=== PATIENT | female | born 1990 ===

== ENCOUNTER 2016-10-22 05:42 | Day surgery (SDC) | payer MEDICAID ==
[2016-10-22] MEDS ORDERED: LIDOCAINE 1% 2 ML INJ ONE (06:05)
--- NOTE | 2016-10-22 06:06 | PDGENHP ---
History and Physical History and Physical: Assessment and Plan: 1. Endometriosis determined by laparoscopy Sharonda's symptoms, exam findings, and ultrasound findings are highly suggestive of persistent or recurrent endometriosis with pelvic adhesive disease. We again reviewed all conservative and surgical options. She has failed medical management. Unfortunately she has been inadequately treated surgically. At the end of our discussion she is interested in scheduling robotic excision of all endometriosis. This will be followed up by menstrual suppression to try to prevent recurrence. I would recommend remaining on it until immediately before attempting . Given all of her symptoms with the various regimens, I think a Mirena IUD would likely be her best option. 2. Pelvic pain in female 3. Dysmenorrhea Subjective: Patient ID: Sharonda Long is a 26 y.o. female who presents to [facility] for endometriosis. FERNY Mcdonough is a 26-year-old 0 woman who lives in [place]. She has a long history of endometriosis. She developed severe dysmenorrhea beginning with menarche at age 12. Eventually she underwent a laparoscopy by Dr. Woods at age 17. She apparently was found to have endometriosis which was fulgurated. She felt better for about 3 years. She was managing her pain with ibuprofen however she was taking up to 1800 mg every 4 hours and developed an ulcer. In [address] aMdison Schrader at [facility]. She performed a laparoscopy and apparently did not see much. She thought her IUD was malpositioned and removed it. The following year she saw Dr. Benson Bryson in [place] who repeated the laparoscopy and apparently found endometriosis which was also ablated. He also thought her IUD had shifted and it was removed. After the Mirena was inserted by Dr. Schrader, she felt good for about 5 months. However her cramping and irregular bleeding became more frequent. She was put on a continuous control pill by Dr. Bryson. She has been on several different pills. Her bleeding eventually improved. However more recently she has been having persistent daily bleeding. She was switched to Nordette 4 weeks ago. She has not bled the last [address] Bryson performed in ultrasound and she was told her endometrium was paper thin. She was told to stop the pill for 3 weeks then restart it. Her bleeding returned and therefore she was switched to the Nordette 4 weeks ago. Cass has slowly worsening dyspareunia. This did improve some after Dr. Bryson's laparoscopy. She has terrible back pain which radiates down the back of both thighs and hips. She has central pelvic cramping which feels menstrual like. She often will lie in the position 1 week per month. She does have dyschezia which is worse during her menses. She alternates between constipation and diarrhea. She often has to take Imodium to treat the diarrhea. Fortunately she has no chest pain, shoulder pain, or shortness of breath. She often developed side effects from a combination control pill having headaches, anxiety, depression, and PMS despite taking the pill in a continuous fashion. She also has tried Neurontin in the past which did nothing. She and her were in February. 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 However she will be losing her job because she has been unable to work secondary to the pain. PastMedicalHistory Past Medical History: Diagnosis Date Endometriosis GERD (gastroesophageal reflux disease) IBS (irritable bowel syndrome) IBS (irritable bowel syndrome) Peptic ulcer disease PastSurgicalHistory Past Surgical History: Procedure Laterality Date APPENDECTOMY INTRAUTERINE DEVICE INSERTION LAPAROSCOPY x 4 for endometriosis PELVIC LAPAROSCOPY 2006, 2013, 2015 TONSILLECTOMY CURRENT MEDICATIONS: Current Outpatient Prescriptions Medication Sig .09/09, , 1.5-30 mg-mcg Tab ondansetron (ZOFRAN) 4 mg tablet Take 1 tablet by mouth every 8 hours as needed for Nausea. oxyCODONE-acetaminophen (PERCOCET) 5-325 mg tab ranitidine (ZANTAC) 150 mg tablet Take 150 mg by mouth daily. EPINEPHrine (TWINJECT AUTOJECTOR) 0.3 mg/0.3 mL Cmpk injection Inject 0.3 mg into the skin once as needed. (Patient not taking: Reported on 09/09/2016) fluCONazole (DIFLUCAN) 150 mg tablet Take one tablet PO every other day x 3 doses (Patient not taking: Reported on 09/09/2016) HYDROcodone-acetaminophen (NORCO) 5-325 mg 1/2-1 tablet every 6 hours as needed for pelvic pain. This med has acetaminophen (APAP). (Patient not taking: Reported on 09/09/2016) norgestimate-ethinyl estradiol (ORTHO TRI-CYCLEN,TRI-SPRINTEC) 0.18/0.215/ 0.25 mg-35 mcg (28) Take 1 tablet by mouth daily for Endometriosis. (Patient not taking: Reported on 09/09/2016) ORTHO-CYCLEN, 28, 0.25-35 mg-mcg per tablet promethazine-codeine (PHENERGAN WITH CODEINE) 6.25-10 mg/5 mL syrup Take 10 mLs by mouth nightly at bedtime for 12 doses. No current facility-administered medications for this visit. ALLERGIES: Cephalosporins; Penicillins; Egg; Levaquin [levofloxacin]; Levothyroxine; Levothyroxine sodium; and Nsaids (non-steroidal anti- inflammatory drug) I have reviewed, verified and agree with the past medical, surgical, , family, social and ROS history as documented by the RN today. Review of Systems Objective: Vital Signs: Visit Vitals BP 114/68 Pulse 83 Temp 36.9 C (98.5 F) (Temporal Artery) Resp 14 Ht 1.676 m (5' 6") Wt 76 kg (167 lb 9.6 oz) SpO2 98% BMI 27.05 kg/m2 Physical Exam Gen: This is an alert, well developed woman in no distress. Neuro: She moves all extremities. Psych: She is appropriate, oriented, with normal affect. Neck: No thyroid enlargement, adenopathy, or tenderness. Lungs: Clear to ascultation, no wheezes or rales. Heart: Regular rate and rhythm without obvious murmurs. Abdomen: Soft, non-tender, without guarding, rebound, or masses. Extremities: No edema or cyanosis. Pelvic: Normal external genitalia. Non-gaping introitus, vagina without discharge, adequately estrogenized, no significant prolapse. Cervix without lesions or discharge. She has slight tenderness of the perineal body. She has mild tenderness of the levator ani muscles. The puborectalis has increased tone on the left. She has moderate tenderness in the anterior cul-de-sac. She has exquisite tenderness along the posterior cervix, insertion of both uterosacral ligaments into the cervix, and within the posterior cul-de-sac. Both uterosacral ligaments are also exquisitely tender as well as the proximal rectovaginal septum. She appears to have some nodularity of the left posterior cul-de-sac near the uterosacral ligament. The uterus has minimal mobility. The adnexa does not have mobility. DATA: Pelvic ultrasound Findings: The uterus is anterior and measures 5.7 x 2.9 x 4.2 cm. The endometrium measures 3 mm. No obvious uterine abnormalities are seen. The right ovary measures 2.2 x 1.4 cm. The left ovary measures 2.8 x 1.3 cm. The uterus slides against the rectum. Both ovaries appear to be adherent to the posteriolateral aspect of the uterus as well as the pelvic sidewalls. Impression: Likely adhesive disease of both adnexa but not the cervix to the rectum. TIME/COMMUNICATION: I personally spent a total of 60 minutes. Of that 40 minutes was counseling/ coordination of patient's care. See my note above for details. Harley Gilbert MD Board Certified Female Pelvic Medicine and Reconstructive Surgery Director of Minimally Invasive Gynecologic Surgery, [facility] Minimally Invasive Gynecologic [facility] Designee
[2016-10-22] MEDS ORDERED: CLINDAMYCIN 900 MG/DEXTROSE 50 ML IV ONE (06:09)
[2016-10-22] MEDS ORDERED: LIDOCAINE 1% 2 ML INJ ID PRN (06:25)
[2016-10-22] MEDS ORDERED: LR 1,000 ML IV ONE (06:25)
[2016-10-22] MEDS ORDERED: PHENAZOPYRIDINE HCL 200 MG TAB PO SCH (06:30)
--- NOTE | 2016-10-22 06:53 | PDANEPAE ---
ANE History of Present Illness presents for robotic excision for endometriosis ANE Past Medical History - Cardiovascular History Hx Hypertension: No Hx Arrhythmias: No Hx Chest Pain: No Hx Coronary Artery / Peripheral Vascular Disease: No Hx CHF / Valvular Disease: No Hx Palpitations: No Cardiovascular History Comment: occ palpitations due to caffeine - Pulmonary History Hx COPD: No Hx Asthma/Reactive Airway Disease: No Hx Recent Upper Respiratory Infection: No Hx Oxygen in Use at Home: No Hx Sleep Apnea: No Sleep Apnea Screening Result - Last Documented: Negative Pulmonary History Comment: wake up "wheezy". Changed 2 yrs ago from cigarettes to E cig. - Neurologic History Hx Cerebrovascular Accident: No Hx Seizures: No Hx Dementia: No Neurologic History Comment: H/A 's due to hormones - Endocrine History Hx Diabetes: No Endocrine History Comment: borderline hypothyroid-no Rx now. - Renal History Hx Renal Disorders: No Renal History Comment: occ UTI - Liver History Hx Hepatic Disorders: No - Neurological & Psychiatric Hx Hx Neurological and Psychiatric Disorders: No Neurological / Psychiatric History Comment: low back pain - pain radiating to legs and hips. "makes my whole back ache" - Cancer History Hx Cancer: No - Congenital Disorder History Hx Congenital Disorders: No - GI History Hx Gastrointestinal Disorders: Yes Gastrointestinal History Comment: acid reflux. Peptic ulcer disease- on Ranitidine. - Other Health History Other Health History: endometriosis-cramping,pelvic pain. - Chronic Pain History Chronic Pain: Yes (pelvis) - Surgical History Prior Surgeries: T and A age 10. Laparoscopy/APPY age 17. wisdom teeth extraction (office) age 22. Laparoscopy(unsuccessful)+replace IUD age 23. Laparoscopy/ablation -removed IUD age 25 ANE Review of Systems - Exercise capacity METS (RN): 4 METS ANE Patient History - Allergies Allergies/Adverse Reactions: Cephalosporins Allergy (Verified 10/21/16 17:00) Hives egg [eggs] Allergy (Verified 10/21/16 17:01) Vomiting levofloxacin [From Levaquin] Allergy (Verified 10/21/16 17:00) Other-Enter Comments levothyroxine sodium [From Synthroid] Allergy (Verified 10/21/16 17:01) Other-Enter Comments Penicillins Allergy (Verified 10/21/16 17:00) Hives - Home Medications Home medications: home medication list seen and reviewed Home Medications: Hair, Skin and Nails 10/21/16 [Last Taken 10/19/16] Percocet 5/325 (*) 10/21/16 [Last Taken 10/22/16 00:01] Ranitidine HCl 10/21/16 [Last Taken 10/20/16] Tylenol 10/21/16 [Last Taken 10/21/16 12:00] - NPO status NPO Since - Liquids (Date): 10/22/16 NPO Since - Liquids (Time): 00:01 NPO Since - Solids (Date): 10/21/16 NPO Since - Solids (Time): 21:00 - Anes Hx Anes Hx: post operative nausea - Smoking Hx Smoking Status: Light smoker - Alcohol Use Alcohol Use: Occasionally ANE Labs/Vital Signs - Vital Signs Blood Pressure: 121/75 Heart Rate: 78 Respiratory Rate: 16 O2 Sat (%): 95 Height: 167.64 cm Weight: 76.204 kg ANE Physical Exam - Airway Neck exam: FROM Mallampati Score: Class 1 Mouth exam: normal dental/mouth exam - Pulmonary Pulmonary: no respiratory distress - Cardiovascular Cardiovascular: regular rate and rhythym - ASA Status ASA Status: II ANE Anesthesia Plan Anesthesia Plan: general endotracheal anesthesia
[2016-10-22] MEDS ORDERED: MIDAZOLAM 2 MG/2 ML VIAL IVP ONE (06:57)
[2016-10-22] MEDS ORDERED: PROPOFOL 200 MG/20 ML VIAL ONE ×2 (07:00)
[2016-10-22] MEDS ORDERED: fentaNYL 100 MCG/2 ML INJ ONE ×3 (07:01→09:16)
[2016-10-22] MEDS ORDERED: SCOPOLAMINE HYDROBROMIDE 1.5 MG PATCH TD ONE (07:06)
[2016-10-22] MEDS ORDERED: BUPIVACAINE/EPI 0.5% 30 ML SDV ONE (07:27)
[2016-10-22] MEDS ORDERED: ROCURONIUM 100 MG/10 ML VIAL ONE (07:51)
[2016-10-22] MEDS ORDERED: LR 500 ML IV PRN (08:57)
[2016-10-22] MEDS ORDERED: METOCLOPRAMIDE 10 MG/2 ML VIAL IVP PRN (08:57)
[2016-10-22] MEDS ORDERED: ALBUTEROL 3 ML DEYVIAL IH PRN (08:57)
[2016-10-22] MEDS ORDERED: NALOXONE HCL 0.4 MG/ML INJ IVP PRN (08:57)
[2016-10-22] MEDS ORDERED: ACETAMINOPHEN 500 MG TAB PO PRN (08:57)
[2016-10-22] MEDS ORDERED: ONDANSETRON 4 MG/2 ML VIAL IVP PRN (08:57)
[2016-10-22] MEDS ORDERED: PROMETHAZINE HCL 25 MG/ML INJ IVP PRN (08:57)
--- NOTE | 2016-10-22 09:14 | POSTANESTH ---
Post Anesthetic Evaluation Cardiovascular Status: Normal, Stable Respiratory Status: Normal, Stable Level of Consciousness/Mental Status: Can Participate in Eval Pain Control: Adequate, Prn Tx Ordered Nausea/Vomiting Control: Adequate, Prn Tx Ordered Complications Possibly Related to Anesthesia: None Noted
[2016-10-22] MEDS: fentaNYL 100 MCG/2 ML INJ IVP PRN ×2 (09:17→09:24)
--- NOTE | 2016-10-22 09:31 | POSTOPPROG ---
Post Op Note Date of Operation: 10/22/16 Surgeon: Harley Gilbert Nuclear Medical Tech: Michelle Costa Anesthesia: GET(General Endotracheal) Pre-op Diagnosis: Endometriosis, dysmenorrhea Post-op Diagnosis: Same Procedure: Robotic excision of endo, bilat ureterolyisis and ovarian pexy Findings: Endo Inf/Abcess present in the surg proc area at time of surgery?: No EBL: Minimal Complications: None
[2016-10-22] MEDS ORDERED: HYDROmorphONE/DILAUDID 1 MG/ML SYR ONE ×2 (10:01→10:29)
[2016-10-22] MEDS: HYDROmorphONE/DILAUDID 1 MG/ML SYR IVP PRN ×6 (10:03→10:54)
[2016-10-22] MEDS ORDERED: OXYCODONE/APAP 5/325 TAB ONE ×2 (11:36→12:16)
[2016-10-22] MEDS: OXYCODONE/APAP 5/325 TAB PO PRN ×2 (11:37→12:26)
[2016-10-22 13:01] VITALS: BP 105/67; PULSE 74; RESP 17; O2SAT 97
[2016-10-22 13:02] VITALS: TEMP 97.9
[2016-10-23] MEDS ORDERED: PATCH REMOVAL 1 EA PATCH TD ONE (07:06)
--- NOTE | 2016-11-06 01:08 | GOP ---
[f rep st] OPERATIVE REPORT DATE OF OPERATION: 10/22/2016 SURGEON: Harley Gilbert MD LEVEE SUPERINTENDENT: Michelle Costa CFA ANESTHESIA: General. PREOPERATIVE DIAGNOSIS: 1. Endometriosis. 2. Dysmenorrhea. 3. Pelvic pain. POSTOPERATIVE DIAGNOSIS: 1. Endometriosis. 2. Dysmenorrhea. 3. Pelvic pain. PROCEDURE PERFORMED: FINDINGS: SPECIMENS: Pelvic peritoneum with endometriosis. ESTIMATED BLOOD LOSS: Scant. DESCRIPTION OF PROCEDURE: Sharonda was taken to the operating room where she was identified. Genera l anesthesia was administered and found to be adequate. She was placed in the lithotomy position an d prepared and draped in normal sterile fashion. A Hulka tenaculum was placed in the uterus for man ipulation. A Lopez catheter was then placed. A 1 cm infraumbilical incision was made with a scalpel. The Veress needle with a CO2 gas flowing wa s advanced into the peritoneal cavity. The abdomen was then insufflated with carbon dioxide gas. T he 12 mm trocar followed by the laparoscope were then inserted. The upper abdomen was examined. No evidence of endometriosis was seen on either diaphragm nor the liver, stomach or upper abdominal j carlos wel. Two lateral ports were placed on the right and 1 on the left under direct visualization. She then was placed in Trendelenburg position and the da Edy robot docked on the left side. Instrumen ts were then brought into the abdominal cavity under direct visualization. The posterior cul-de-sac peritoneum was then completely excised from the distal rectum extending up along the posterior cervix and laterally to include both uterosacral ligaments, peritoneum. The end ometriosis in both ovarian fossae was then excised. This required bilateral ureterolysis given the endometriosis overlying both ureters. The peritoneum of the pelvic rims were incised. The ureters were gently dissected free. The ureters were lateralized off the overlying peritoneum and endometri osis all the way down to the bladder. Once this was accomplished, the entire peritoneum from the ut erosacral ligaments along the lateral aspects of the pericolic gutters and extending anteriorly to t he ovaries were completely excised. Finally the peritoneum and endometriosis in the anterior cul-de -sac was completely excised. All specimens were sent to Pathology for permanent section. The pelvis was irrigated with sterile saline and hemostasis was present. A bilateral ovarian pexy w as performed given the patient's cyclic pelvic pain and excision of endometriosis. The ovaries were sutured to the ipsilateral round ligaments near the internal inguinal ring with 3-0 Vicryl Rapide s uture. The robot was then undocked. The fascia was closed with 0 Vicryl, skin with 4-0 Monocryl an d surgical adhesive. Anesthesia was reversed and patient taken to PACU awake in stable condition. PROCEDURES: 1. Robotic excision of endometriosis of posterior and anterior cul-de-sacs and bilateral ovarian fo ssas. 2. Bilateral ureterolysis. 3. Bilateral ovarian pexy. COMPLICATIONS: None. DISPOSITION: Patient stable to PACU. /[id number]/MODL
== END 2016-10-22 12:45 | disposition home or self-care (01) ==
LOC: FSGY 05:42
PROVIDERS: ATTEND Obstetrics & Gynecology
PROC: 8E0WXCZ Robotic Assisted Procedure of Trunk Region (ICD-10-PCS; principal; 2016-10-22 07:15)
PROC: 0US24ZZ Reposition Bilateral Ovaries, Percutaneous Endoscopic Approach (ICD-10-PCS; principal; 2016-10-22 07:15)
PROC: 0U5F4ZZ Destruction of Cul-de-sac, Percutaneous Endoscopic Approach (ICD-10-PCS; principal; 2016-10-22 07:15)
DX: N80.3 Endometriosis of pelvic peritoneum (principal); N80.8 Other endometriosis; N94.6 Dysmenorrhea, unspecified; R10.2 Pelvic and perineal pain; K21.9 Gastro-esophageal reflux disease without esophagitis
CPT/HCPCS: 58662; 58679; C1765; J1170; J2250; J2704; J3010